=== PATIENT | female | born 1980 | race African-American/Black ===

== ENCOUNTER 2023-07-13 11:27 | Emergency (ER) | payer OTHER ==
[2023-07-13 12:27] LABS: Hematocrit 40.7 % (36.0-47.0); Hemoglobin 13.7 g/dL (12.0-16.0); Manual Diff?? YES; Mean Corpuscular HGB CONC 33.7 g/dL (32.0-36.0); Mean Corpuscular Hemoglobin 30.4 pg (27.0-31.0); Mean Corpuscular Volume 90.4 fl (78.0-98.0); Mean Platelet Volume 11.2 fL (7.4-10.4); Platelet Count 245 10x3/uL (130-400); RBC Distribution Width 12.6 % (11.5-14.5); White Blood Cell (WBC) Count 2.6 10x3/uL (4.8-10.8)
[2023-07-13 12:30] LABS: Delete Auto Diff?? YES
[2023-07-13 12:48] LABS: ALT (SGPT) 10 U/L (8-55); AST (SGOT) 19 U/L (5-34); Albumin 4.8 g/dL (3.5-5.0); Alkaline Phosphatase 44 U/L (40-110); Anion Gap 12 mmol/L (10-20); BUN (Urea Nitrogen) 6 mg/dL (7.0-18.7); Bilirubin, Total 0.6 mg/dL (0.2-1.2); Calc. Creatinine Clearance 0 mL/min (70-130); Calcium 9.7 mg/dL (7.8-10.44); Carbon Dioxide 24 mmol/L (22-29); Chloride 105 mmol/L (98-107); Estimated GFR 93; Globulin 2.9 g/dL (2.4-3.5); Glucose 85 mg/dL (70-105); Potassium 4.4 mmol/L (3.5-5.1); Protein, Total 7.7 g/dL (6.0-8.3); Sodium 137 mmol/L (136-145)
[2023-07-13 12:52] LABS: Band 2 % (5-11); CellaVision Operator ID LAB.MJL; Eosinophils 4 % (0-10); Lymphocytes 58 % (21-51); Monocytes 3 % (0-10); Neutrophil 26 % (42-75); Platelet Adequacy Comment Platelets Normal; RBC Morphology Within Normal Limits; Reactive Lymphocytes 5 % (0-10); Total Cell Count 99
[2023-07-13 13:48] LABS: INR-International Normal Ratio 1.1; PTT 33.2 sec (22.9-36.1); Prothrombin Time 14.3 sec (12.0-14.7)
[2023-07-13 14:36] LABS: Bilirubin Negative (Negative); Blood, Urine Moderate (Negative); Glucose, Urine (Dipstick) Negative (Negative); Ketone, Urine Negative (Negative); Leukocyte Negative (Negative); Nitrite Negative (Negative); Protein, Urine (Dipstick) Negative (Neg-Trace); Urobilinogen 0.2 mg/dL (Less than 2)
[2023-07-13 14:38] LABS: Clarity Hazy (Clear); Specific Gravity, Urine 1.008 (1.002-1.036)
[2023-07-13 14:39] LABS: Pregnancy Test - Urine (BHCG) Negative (Negative); Pregu Control Background? CLEAR/WHITE (CLR/WHITE); Pregu Control Bar Appear? YES (CONTROL BAR); Specific Gravity 1.008 (1.002-1.036)
[2023-07-13 14:48] LABS: Bacteria/HPF Rare-Few HPF (None Seen); CAUTI Indications for Culture Pelvic or flank pain; WBC/HPF None Seen HPF (0-3)
[2023-07-13 14:49] LABS: Urine Culture Reflex No No
== END 2023-07-13 15:51 | disposition home or self-care (01) ==
LOC: ERS 11:27
DX: N93.9 Abnormal uterine and vaginal bleeding, unspecified (principal); D25.9 Leiomyoma of uterus, unspecified
CPT/HCPCS: 36415; 76856; 80053; 81001; 81025; 84443; 85025; 85610; 85730